=== PATIENT | female | born 1960 ===

== ENCOUNTER 2017-12-12 18:24 | Inpatient (IN) | payer MEDICAID ==
[~2017-12-12] VITALS: Ht 176.5 cm; Wt 99.0 kg
[~2017-12-12 18:24] MED LIST: INSU100V8 SQ; INSULIN
[2017-12-12] MEDS ORDERED: METF500T17 PO (18:59)
[2017-12-12] MEDS ORDERED: AMLO5TAB7 PO (18:59)
[2017-12-12] MEDS ORDERED: INSU100C5 SQ-INSULIN (18:59)
[2017-12-12] MEDS ORDERED: TRAZ-137 PO (18:59)
[2017-12-12] MEDS ORDERED: HYDR25TA6 PO (18:59)
[2017-12-12] MEDS ORDERED: FLUO40CA9 PO (18:59)
[2017-12-12] MEDS ORDERED: SODIUM CHLORIDE FLUSH 10ML SYR IVF ONE (19:00)
[2017-12-12] MEDS ORDERED: DIPH,PERTUSS(ACELL),TET VAC/PF 0.5 ML IM-VACC ONE ×2 (19:00→19:15)
[2017-12-12] MEDS ORDERED: SODIUM CHLORIDE 0.9% 1,000ML IVBOLUS ONE ×3 (19:00→20:00)
[2017-12-12] MEDS ORDERED: VANCOMYCIN PER PHARMACY IV ONE (19:00)
[2017-12-12] MEDS ORDERED: VANCOMYCIN 1,800 MG in SODIUM CHLORIDE 0.9% 250 ML IV ONE (19:00)
[2017-12-12] MEDS ORDERED: AMPICILLIN/SULBACTAM 3 GM in SODIUM CHLORIDE 0.9% 100 ML IVPB ONE (19:00)
[2017-12-12] MEDS ORDERED: MORPHINE SULFATE 4 MG/ML, 1ML ONE ×2 (19:07→21:11)
[2017-12-12] MEDS: MORPHINE SULFATE 4 MG/ML, 1ML IV PRN ×2 (19:08→21:45)
[2017-12-12 19:09] LABS: MEAN CORPUSCULAR HEMOGLOBIN 29.2 pg (27.0-34.8); MEAN CORPUSCULAR HGB CONC 33.8 g/dL (32.4-35.8); MEAN CORPUSCULAR VOLUME 86.5 fL (80-100); MEAN PLATELET VOLUME 9.2 fL (7.4-10.4); PLATELET COUNT 293 x10^3/uL (130-400); RED CELL DISTRIBUTION WIDTH 13.9 % (9.6-15.2)
[2017-12-12 19:20] LABS: ALBUMIN 2.4 g/dL (3.4-5.0); ANION GAP 15 mmol/L (5-15); CHLORIDE 89 mmol/L (98-107); CREATININE 1.58 mg/dL (0.55-1.02)
[2017-12-12] MEDS ORDERED: VANCOMYCIN 1,900 MG in SODIUM CHLORIDE 0.9% 250 ML IV ONE (19:30)
[2017-12-12 19:32] LABS: BASOPHILS # (AUTO) 0.01 x10^3/uL (0-0.1); BASOPHILS % (AUTO) 0 % (0-1); EOSINOPHILS # (AUTO) 0.02 x10^3/uL (0-0.4); EOSINOPHILS % (AUTO) 0 % (1-7); LYMPHOCYTES # (AUTO) 1.01 x10^3/uL (1-3.4); LYMPHOCYTES % (AUTO) 5 % (22-44); MD MORPH REVIEW ONLY; MONOCYTES # (AUTO) 0.73 x10^3/uL (0.2-0.8); MONOCYTES % (AUTO) 4 % (2-9); NEUTROPHILS # (AUTO) 18.17 x10^3/uL (1.8-6.8); NEUTROPHILS % (AUTO) 91 % (42-75)
[2017-12-12 19:33] LABS: <PLATELET ESTIMATE> ADEQUATE; <PLT MORPHOLOGY> NORMAL PLT MORPH; <RBC MORPHOLOGY> NORMAL; TOXIC GRAN 1+
[2017-12-12] MEDS ORDERED: POTASSIUM CHLORIDE 20 MEQ TAB.ER.PRT ONE (19:47)
[2017-12-12 19:51] LABS: HCT (SEDRATE) 38.9 % (34.6-47.8)
[2017-12-12 19:52] LABS: PH, VENOUS 7.311 pH (7.320-7.420)
[2017-12-12] MEDS ORDERED: POTASSIUM CHLORIDE 20 MEQ TAB.ER.PRT PO ONE (20:00)
[2017-12-12 20:07] LABS: HIGH-SENSITIVITY CRP > 19.00 mg/dL (0.02-0.30)
[2017-12-12] MEDS ORDERED: OMNIPAQUE 350 MG/ML, 100ML BOTTLE ONE (20:17)
[2017-12-12 20:20] LABS: ACETONE, SERUM Negative (Negative)
[2017-12-12] MEDS ORDERED: KETAMINE 100 MG/ML, 5ML IV ONE (21:00)
[2017-12-12] MEDS ORDERED: KETAMINE 50 MG/ML, 10ML ONE (21:11)
[2017-12-12] MEDS ORDERED: SODIUM CHLORIDE 0.9% 1,000 ML IV SCH (21:50)
[2017-12-12] MEDS ORDERED: DOCUSATE 100 MG CAPSULE PO PRN (22:00)
[2017-12-12] MEDS ORDERED: PROMETHAZINE 25 MG/ML, 1ML IM PRN (22:00)
[2017-12-12] MEDS ORDERED: morphine SULFATE 10 MG/ML, 1ML IVPush PRN (22:00)
[2017-12-12] MEDS ORDERED: POLYETHYLENE GLYCOL 17 GM PACKET PO PRN (22:00)
[2017-12-12] MEDS ORDERED: BISACODYL 10 MG SUPP PR PRN (22:00)
[2017-12-12] MEDS ORDERED: hydrALAzine 20 MG/ML, 1ML IVPush PRN (22:00)
[2017-12-12] MEDS ORDERED: ONDANSETRON ODT 4 MG PO PRN (22:00)
[2017-12-12] MEDS ORDERED: INSULIN REGULAR 100 UNITS/ML, 3ML VIAL SQ-INSULIN ONE (22:00)
[2017-12-12] MEDS ORDERED: LABETALOL 5MG/ML, 20ML IVPush PRN (22:00)
[2017-12-12] MEDS ORDERED: ONDANSETRON 2MG/ML, 2ML IVPush PRN (22:00)
[2017-12-12] MEDS ORDERED: INSULIN REGULAR 100 UNITS/ML, 3ML VIAL ONE (22:12)
[2017-12-12] MEDS ORDERED: INSULIN ASPART 5 UNIT SQ-INSULIN SCH (22:30)
[2017-12-12] MEDS ORDERED: INSULIN LISPRO 100 UNITS/ML, PEN SQ-INSULIN SCH (22:30)
[2017-12-12] MEDS ORDERED: POTASSIUM CHLORIDE 40 MEQ in SODIUM CHLORIDE 0.9% 500 ML IV ONE (22:30)
[2017-12-12] MEDS ORDERED: VANCOMYCIN PER PHARMACY MC PRN (22:30)
[2017-12-12 22:37] LABS: FREE T4 (FREE THYROXINE) 1.58 ng/dL (0.76-1.46); THYROID STIMULATING HORMONE 1.15 mIU/L (0.358-3.740)
[2017-12-12] MEDS: HEPARIN 5,000 UNITS/ML, 1ML SQ SCH (22:50)
[2017-12-12 22:55] VITALS: BP 112/68
[2017-12-12] MEDS ORDERED: PHARMACOKINETIC CONSULTATION MC ONE (23:00)
[2017-12-12] MEDS ORDERED: PHARMACOKINETIC MONITORING MC PRN (23:00)
[2017-12-12] MEDS: INSULIN GLARGINE 100 UNITS/ML, PEN SQ-INSULIN SCH (23:21)
[2017-12-12] MEDS: INSULIN LISPRO 100 UNITS/ML, PEN SQ-INSULIN SCH (23:21)
[2017-12-12] MEDS: TRAZODONE 50MG TABLET PO SCH (23:30)
[2017-12-12] MEDS: PIPERACILLIN/TAZO/PMX 3.375GM 50 ML IV SCH (23:30)
[2017-12-13 00:19] LABS: CULTURE INDICATED? YES; MICROSCOPIC AUTO
[2017-12-13] MEDS: NS + 40MEQ KCL 1,000 ML IV SCH ×2 (00:45→08:00)
[2017-12-13] MEDS: KETOROLAC 30 MG/1 ML IV PRN ×2 (00:54→09:11)
[2017-12-13 01:53] VITALS: BP 131/71
[2017-12-13 05:00] LABS: MEAN CORPUSCULAR HGB CONC 33.9 g/dL (32.4-35.8); MEAN CORPUSCULAR VOLUME 85.4 fL (80-100); MEAN PLATELET VOLUME 8.6 fL (7.4-10.4); PLATELET COUNT 249 x10^3/uL (130-400); RED BLOOD COUNT 4.22 x10^6/uL (3.82-5.3); RED CELL DISTRIBUTION WIDTH 13.9 % (9.6-15.2)
[2017-12-13 05:12] LABS: ALBUMIN 1.8 g/dL (3.4-5.0); ANION GAP 10 mmol/L (5-15); CALCIUM 7.7 mg/dL (8.5-10.1); CHLORIDE 106 mmol/L (98-107)
[2017-12-13 05:17] LABS: ALANINE AMINOTRANSFERASE 15 U/L (12-78); ALKALINE PHOSPHATASE 184 U/L (45-117); BILIRUBIN,TOTAL 0.5 mg/dL (0.2-1.0); CHOL/HDL RATIO 4.4; CHOLESTEROL, TOTAL 75 mg/dL (140-239); CREATININE 0.89 mg/dL (0.55-1.02); HDL CHOL % 23 % (28-40); HDL CHOLESTEROL (DIRECT) 17 mg/dL (40-60); LDL CHOLESTEROL,CALCULATED 37 mg/dL (54-169); LDL/HDL RATIO 2.2 (0.5-3.0); TOTAL PROTEIN 6.3 g/dL (6.4-8.2); TRIGLYCERIDES 105 mg/dL (50-200); VLDL CHOLESTEROL 21 mg/dL (0-25)
[2017-12-13 05:31] LABS: BASOPHILS # (AUTO) 0.02 x10^3/uL (0-0.1); BASOPHILS % (AUTO) 0 % (0-1); EOSINOPHILS # (AUTO) 0.06 x10^3/uL (0-0.4); EOSINOPHILS % (AUTO) 0 % (1-7); LYMPHOCYTES # (AUTO) 1.17 x10^3/uL (1-3.4); LYMPHOCYTES % (AUTO) 6 % (22-44); MD SCAN; MONOCYTES # (AUTO) 1.37 x10^3/uL (0.2-0.8); MONOCYTES % (AUTO) 7 % (2-9); NEUTROPHILS # (AUTO) 17.17 x10^3/uL (1.8-6.8); NEUTROPHILS % (AUTO) 87 % (42-75)
[2017-12-13] MEDS: HEPARIN 5,000 UNITS/ML, 1ML SQ SCH ×3 (06:16→22:19)
[2017-12-13] MEDS: PIPERACILLIN/TAZO/PMX 3.375GM 50 ML IV SCH ×3 (06:16→19:39)
[2017-12-13] MEDS: INSULIN LISPRO 100 UNITS/ML, PEN SQ-INSULIN SCH ×4 (06:20→22:24)
[2017-12-13 07:12] VITALS: BP 113/64
[2017-12-13] MEDS: FLUOXETINE HCL 20 MG CAPSULE PO SCH (09:11)
[2017-12-13] MEDS ORDERED: GADOBUTROL 10 MMOL/10 ML PFS ONE (12:44)
[2017-12-13 14:41] VITALS: BP 148/77
[2017-12-13 15:08] VITALS: BP 113/68
[2017-12-13] MEDS: VANCOMYCIN 1,600 MG in SODIUM CHLORIDE 0.9% 250 ML IV SCH (17:34)
[2017-12-13] MEDS: ACETAMINOPHEN 325 MG TABLET PO PRN (18:16)
[2017-12-13] MEDS ORDERED: SODIUM CHLORIDE 0.9% 1,000 ML IV SCH (18:30)
[2017-12-13] MEDS: SODIUM CHLORIDE 0.9% 1,000 ML IV SCH (18:30)
[2017-12-13 18:37] VITALS: BP 111/65
[2017-12-13] MEDS: TRAZODONE 50MG TABLET PO SCH (22:19)
[2017-12-13] MEDS: INSULIN GLARGINE 100 UNITS/ML, PEN SQ-INSULIN SCH (22:23)
[2017-12-14 00:16] VITALS: BP 136/75
[2017-12-14] MEDS: ACETAMINOPHEN 325 MG TABLET PO PRN (00:54)
[2017-12-14] MEDS: PIPERACILLIN/TAZO/PMX 3.375GM 50 ML IV SCH ×4 (01:03→21:47)
[2017-12-14 05:06] LABS: BASOPHILS # (AUTO) 0.01 x10^3/uL (0-0.1); BASOPHILS % (AUTO) 0 % (0-1); EOSINOPHILS # (AUTO) 0.17 x10^3/uL (0-0.4); EOSINOPHILS % (AUTO) 1 % (1-7); LYMPHOCYTES # (AUTO) 1.49 x10^3/uL (1-3.4); LYMPHOCYTES % (AUTO) 10 % (22-44); MD NO; MEAN CORPUSCULAR HEMOGLOBIN 28.4 pg (27.0-34.8); MEAN CORPUSCULAR HGB CONC 32.9 g/dL (32.4-35.8); MEAN CORPUSCULAR VOLUME 86.5 fL (80-100); MEAN PLATELET VOLUME 8.6 fL (7.4-10.4); MONOCYTES # (AUTO) 0.62 x10^3/uL (0.2-0.8); MONOCYTES % (AUTO) 4 % (2-9); NEUTROPHILS # (AUTO) 12.69 x10^3/uL (1.8-6.8); NEUTROPHILS % (AUTO) 85 % (42-75); PLATELET COUNT 299 x10^3/uL (130-400); RED CELL DISTRIBUTION WIDTH 14.1 % (9.6-15.2)
[2017-12-14 05:09] LABS: ANION GAP 9 mmol/L (5-15); CALCIUM 8.5 mg/dL (8.5-10.1); CHLORIDE 104 mmol/L (98-107); CREATININE 0.89 mg/dL (0.55-1.02)
[2017-12-14] MEDS: HEPARIN 5,000 UNITS/ML, 1ML SQ SCH ×3 (05:10→23:02)
[2017-12-14] MEDS: KETOROLAC 30 MG/1 ML IV PRN ×2 (05:11→14:16)
[2017-12-14] MEDS: SODIUM CHLORIDE 0.9% 1,000 ML IV SCH ×2 (06:20→21:47)
[2017-12-14 07:22] VITALS: BP 124/69
[2017-12-14] MEDS: FLUOXETINE HCL 20 MG CAPSULE PO SCH (07:55)
[2017-12-14] MEDS: INSULIN LISPRO 100 UNITS/ML, PEN SQ-INSULIN SCH ×3 (09:49→21:48)
[2017-12-14] MEDS: OXYcodone IR 5MG TABLET PO PRN ×2 (11:03→23:03)
[2017-12-14] MEDS: VANCOMYCIN 1,600 MG in SODIUM CHLORIDE 0.9% 250 ML IV SCH (11:04)
[2017-12-14] MEDS ORDERED: morphine SULFATE 10 MG/ML, 1ML IVPush PRN (13:00)
[2017-12-14 13:43] VITALS: BP 126/64
[2017-12-14] MEDS ORDERED: FENTANYL PF 100 MCG/2ML IV PRN (16:30)
[2017-12-14] MEDS ORDERED: OXYcodone 5 MG/5 ML ORAL.SOL UDC PO PRN (16:30)
[2017-12-14] MEDS ORDERED: LABETALOL 5MG/ML, 20ML IV PRN (16:30)
[2017-12-14] MEDS ORDERED: DIPHENHYDRAMINE 50 MG/ML, 1ML IVPush PRN (16:30)
[2017-12-14] MEDS ORDERED: PROCHLORPERAZINE 5 MG/ML, 2ML IV PRN (16:30)
[2017-12-14] MEDS ORDERED: HYDROmorphone 1 MG/ML, 1ML IV PRN (16:30)
[2017-12-14] MEDS ORDERED: HALOPERIDOL 5 MG/ML IV PRN (16:30)
[2017-12-14] MEDS ORDERED: hydrALAzine 20 MG/ML, 1ML IV PRN (16:30)
[2017-12-14] MEDS ORDERED: MEPERIDINE/PF 25MG/0.5ML IVPush PRN (16:30)
[2017-12-14] MEDS ORDERED: PROPOFOL 10 MG/ML, 20ML ONE (18:16)
[2017-12-14] MEDS ORDERED: ONDANSETRON 2MG/ML, 2ML ONE (18:16)
[2017-12-14] MEDS ORDERED: KETOROLAC 30 MG/1 ML ONE (18:16)
[2017-12-14] MEDS ORDERED: DEXAMETHASONE 4 MG/ML, 1ML ONE (18:16)
[2017-12-14] MEDS ORDERED: FENTANYL PF 100 MCG/2ML ONE ×3 (18:39→19:31)
[2017-12-14] MEDS ORDERED: BUPIVACAINE/PF-EPI 0.5% 1:200K INFIL ONE (18:45)
[2017-12-14] MEDS ORDERED: OXYcodone 5 MG/5 ML ORAL.SOL UDC ONE (19:31)
[2017-12-14 20:17] VITALS: BP 156/79
[2017-12-14] MEDS: TRAZODONE 50MG TABLET PO SCH (21:47)
[2017-12-14] MEDS: INSULIN GLARGINE 100 UNITS/ML, PEN SQ-INSULIN SCH (21:48)
[2017-12-14 23:23] VITALS: BP 116/74
[2017-12-15] MEDS: KETOROLAC 30 MG/1 ML IV PRN ×3 (03:12→16:19)
[2017-12-15] MEDS: PIPERACILLIN/TAZO/PMX 3.375GM 50 ML IV SCH ×4 (03:12→22:54)
[2017-12-15 03:22] VITALS: BP 130/72
[2017-12-15] MEDS: VANCOMYCIN 1,600 MG in SODIUM CHLORIDE 0.9% 250 ML IV SCH (05:18)
[2017-12-15 05:27] LABS: BASOPHILS # (AUTO) 0.03 x10^3/uL (0-0.1); BASOPHILS % (AUTO) 0 % (0-1); EOSINOPHILS # (AUTO) 0.13 x10^3/uL (0-0.4); EOSINOPHILS % (AUTO) 1 % (1-7); LYMPHOCYTES # (AUTO) 1.31 x10^3/uL (1-3.4); LYMPHOCYTES % (AUTO) 12 % (22-44); MD NO; MEAN CORPUSCULAR HEMOGLOBIN 28.7 pg (27.0-34.8); MEAN PLATELET VOLUME 8.1 fL (7.4-10.4); MONOCYTES # (AUTO) 0.72 x10^3/uL (0.2-0.8); MONOCYTES % (AUTO) 6 % (2-9); NEUTROPHILS # (AUTO) 9.15 x10^3/uL (1.8-6.8); NEUTROPHILS % (AUTO) 81 % (42-75); PLATELET COUNT 247 x10^3/uL (130-400); RED BLOOD COUNT 3.55 x10^6/uL (3.82-5.3); RED CELL DISTRIBUTION WIDTH 14.3 % (9.6-15.2)
[2017-12-15 05:37] LABS: ANION GAP 9 mmol/L (5-15); CALCIUM 7.5 mg/dL (8.5-10.1); CHLORIDE 105 mmol/L (98-107); CREATININE 0.78 mg/dL (0.55-1.02)
[2017-12-15 05:38] LABS: VANCOMYCIN,TROUGH 11.6 mcg/mL (5.0-10.0)
[2017-12-15] MEDS: HEPARIN 5,000 UNITS/ML, 1ML SQ SCH ×3 (06:37→22:54)
[2017-12-15] MEDS: OXYcodone IR 5MG TABLET PO PRN ×3 (06:43→19:15)
[2017-12-15] MEDS ORDERED: INSULIN LISPRO 100 UNITS/ML, PEN SQ-INSULIN SCH (07:00)
[2017-12-15 07:38] VITALS: BP 146/70
[2017-12-15] MEDS: SODIUM CHLORIDE 0.9% 1,000 ML IV SCH ×2 (08:04→19:15)
[2017-12-15] MEDS: FLUOXETINE HCL 20 MG CAPSULE PO SCH (08:04)
[2017-12-15] MEDS ORDERED: POTASSIUM CHLORIDE 40 MEQ in SODIUM CHLORIDE 0.9% 500 ML IV ONE (09:30)
[2017-12-15] MEDS ORDERED: MAGNESIUM SULFATE PMX 2GM/50ML 50 ML IV ONE (09:30)
[2017-12-15] MEDS: INSULIN LISPRO 100 UNITS/ML, PEN SQ-INSULIN SCH ×3 (11:51→20:55)
[2017-12-15 12:27] VITALS: BP 144/72
[2017-12-15] MEDS: ACETAMINOPHEN 325 MG TABLET PO PRN (16:19)
[2017-12-15 18:38] VITALS: BP 142/85
[2017-12-15] MEDS: INSULIN GLARGINE 100 UNITS/ML, PEN SQ-INSULIN SCH (20:55)
[2017-12-15] MEDS: TRAZODONE 50MG TABLET PO SCH (20:55)
[2017-12-15] MEDS: VANCOMYCIN 1,900 MG in SODIUM CHLORIDE 0.9% 250 ML IV SCH (20:55)
[2017-12-15 23:27] VITALS: BP 140/72
[2017-12-16] MEDS: OXYcodone IR 5MG TABLET PO PRN ×4 (03:38→23:50)
[2017-12-16] MEDS: SODIUM CHLORIDE 0.9% 1,000 ML IV SCH ×2 (03:40→17:37)
[2017-12-16] MEDS: PIPERACILLIN/TAZO/PMX 3.375GM 50 ML IV SCH ×4 (04:13→23:50)
[2017-12-16] MEDS: HEPARIN 5,000 UNITS/ML, 1ML SQ SCH ×3 (06:18→21:41)
[2017-12-16 06:49] VITALS: BP 154/75
[2017-12-16] MEDS: FLUOXETINE HCL 20 MG CAPSULE PO SCH (07:43)
[2017-12-16] MEDS: INSULIN LISPRO 100 UNITS/ML, PEN SQ-INSULIN SCH ×4 (07:43→21:40)
[2017-12-16] MEDS: KETOROLAC 30 MG/1 ML IV PRN ×4 (07:44→21:40)
[2017-12-16] MEDS: ACETAMINOPHEN 325 MG TABLET PO PRN ×2 (11:07→15:40)
[2017-12-16] MEDS: OMEPRAZOLE 20 MG CAPSULE.DR PO SCH (11:07)
[2017-12-16 12:00] VITALS: BP 140/78
[2017-12-16] MEDS: VANCOMYCIN 1,900 MG in SODIUM CHLORIDE 0.9% 250 ML IV SCH (15:35)
[2017-12-16 21:28] VITALS: BP 128/72
[2017-12-16] MEDS: TRAZODONE 50MG TABLET PO SCH (21:39)
[2017-12-16] MEDS: INSULIN GLARGINE 100 UNITS/ML, PEN SQ-INSULIN SCH (21:40)
[2017-12-17 01:11] LABS: CLOSTRIDIUM DIFFICILE ANTIGEN NEGATIVE; CLOSTRIDIUM DIFFICILE TOXIN NEGATIVE (Negative)
[2017-12-17 03:40] VITALS: BP 132/75
[2017-12-17] MEDS: PIPERACILLIN/TAZO/PMX 3.375GM 50 ML IV SCH ×4 (05:06→23:52)
[2017-12-17] MEDS: KETOROLAC 30 MG/1 ML IV PRN ×3 (05:07→21:29)
[2017-12-17] MEDS: HEPARIN 5,000 UNITS/ML, 1ML SQ SCH ×3 (06:18→22:00)
[2017-12-17] MEDS: ACETAMINOPHEN 325 MG TABLET PO PRN ×2 (07:56→14:22)
[2017-12-17] MEDS: INSULIN LISPRO 100 UNITS/ML, PEN SQ-INSULIN SCH ×4 (07:56→21:28)
[2017-12-17] MEDS: OXYcodone IR 5MG TABLET PO PRN ×3 (07:57→23:52)
[2017-12-17] MEDS: OMEPRAZOLE 20 MG CAPSULE.DR PO SCH (07:57)
[2017-12-17] MEDS: FLUOXETINE HCL 20 MG CAPSULE PO SCH (07:57)
[2017-12-17 08:54] VITALS: BP 118/69
[2017-12-17] MEDS: VANCOMYCIN 1,900 MG in SODIUM CHLORIDE 0.9% 250 ML IV SCH (09:42)
[2017-12-17] MEDS: SODIUM CHLORIDE 0.9% 1,000 ML IV SCH ×2 (11:50→23:52)
[2017-12-17 13:05] VITALS: BP 145/78
[2017-12-17 18:42] VITALS: BP 152/74
[2017-12-17] MEDS: INSULIN GLARGINE 100 UNITS/ML, PEN SQ-INSULIN SCH (21:28)
[2017-12-17] MEDS: TRAZODONE 50MG TABLET PO SCH (21:29)
[2017-12-18 02:18] VITALS: BP 152/77
[2017-12-18] MEDS: ACETAMINOPHEN 325 MG TABLET PO PRN ×2 (02:27→11:46)
[2017-12-18] MEDS: VANCOMYCIN 1,900 MG in SODIUM CHLORIDE 0.9% 250 ML IV SCH (03:30)
[2017-12-18 03:33] LABS: VANCOMYCIN,TROUGH 20.6 mcg/mL (5.0-10.0)
[2017-12-18] MEDS: HEPARIN 5,000 UNITS/ML, 1ML SQ SCH (06:00)
[2017-12-18] MEDS: PIPERACILLIN/TAZO/PMX 3.375GM 50 ML IV SCH ×2 (06:00→14:13)
[2017-12-18] MEDS: OXYcodone IR 5MG TABLET PO PRN ×2 (06:05→11:57)
[2017-12-18 06:58] VITALS: BP 161/74
[2017-12-18] MEDS: INSULIN LISPRO 100 UNITS/ML, PEN SQ-INSULIN SCH ×2 (08:25→11:45)
[2017-12-18] MEDS: OMEPRAZOLE 20 MG CAPSULE.DR PO SCH (08:32)
[2017-12-18] MEDS: FLUOXETINE HCL 20 MG CAPSULE PO SCH (08:32)
[2017-12-18] MEDS ORDERED: VANCOMYCIN 1,900 MG in SODIUM CHLORIDE 0.9% 250 ML IV SCH (12:00)
[2017-12-18 12:25] VITALS: BP 157/78
[2017-12-18] MEDS ORDERED: OXYC5TAB3 PO (13:38)
[2017-12-18] MEDS ORDERED: CEPH-368 PO (13:38)
== END 2017-12-18 15:51 | disposition home or self-care (01) | DRG 853 ==
LOC: ED 18:59 → EDIP 21:47 → 4NOR 22:30 → DCLOUNGE 12-18 13:34
PROVIDERS: ADMIT Internal Medicine; ATTEND Internal Medicine
PROC: 0L970ZZ Drainage of Right Hand Tendon, Open Approach (ICD-10-PCS; 2017-12-14)
PROC: 0LB70ZZ Excision of Right Hand Tendon, Open Approach (ICD-10-PCS; principal; 2017-12-14 17:30)
DX: A41.9 Sepsis, unspecified organism (principal); N17.0 Acute kidney failure with tubular necrosis; E11.10 Type 2 diabetes mellitus with ketoacidosis without coma; L02.511 Cutaneous abscess of right hand; E44.0 Moderate protein-calorie malnutrition; E87.1 Hypo-osmolality and hyponatremia; L03.113 Cellulitis of right upper limb; E86.0 Dehydration; E87.6 Hypokalemia; F15.10 Other stimulant abuse, uncomplicated; F32.9 Major depressive disorder, single episode, unspecified; F41.9 Anxiety disorder, unspecified; I10 Essential (primary) hypertension; R65.20 Severe sepsis without septic shock; Z79.4 Long term (current) use of insulin; Z68.31 Body mass index [BMI] 31.0-31.9, adult; Z79.899 Other long term (current) drug therapy; Z79.1 Long term (current) use of non-steroidal anti-inflammatories (NSAID); Z79.2 Long term (current) use of antibiotics
CPT/HCPCS: 36415; 80048; 80053; 80061; 80202; 81001; 82010; 82040; 82565; 82803; 82947; 82962; 83036; 83605; 83735; 84145; 84439; 84443; 85025; 85651; 86141; 87040; 87070; 87075; 87077; 87086; 87186; 87205; 87324; 90471; 90715; 96365; 96372; 96375; 96376; 99291; A9585; G0378; J0295; J1100; J1644; J1885; J2405; J2543; J2704; J3010; J3370; J3480; Q9967; J1815; J2270; J3475; J7030; J7040; J7050

== ENCOUNTER 2017-12-22 08:17 | Emergency (ER) | payer MEDICAID ==
[~2017-12-22] VITALS: Ht 175.3 cm; Wt 95.0 kg
[~2017-12-22 08:17] MED LIST changes: +AMLO5TAB7 PO; +CEPH-368 PO; +FLUO40CA9 PO; +HYDR25TA6 PO; +INSU100C5 SQ-INSULIN; +METF500T17 PO; +OXYC5TAB3 PO; +TRAZ-137 PO
[2017-12-22 08:59] VITALS: BP 151/83
== END 2017-12-22 09:11 | disposition home or self-care (01) ==
LOC: ED 09:05
DX: L03.113 Cellulitis of right upper limb (principal); F31.9 Bipolar disorder, unspecified; I10 Essential (primary) hypertension; E11.9 Type 2 diabetes mellitus without complications
CPT/HCPCS: 99283

== ENCOUNTER 2017-12-24 08:45 | Emergency (ER) | payer MEDICAID ==
[~2017-12-24] VITALS: Ht 175.3 cm; Wt 94.0 kg
[2017-12-24 08:55] VITALS: BP 165/82
== END 2017-12-24 10:11 | disposition home or self-care (01) ==
LOC: ED 09:00
DX: L02.511 Cutaneous abscess of right hand (principal); F31.9 Bipolar disorder, unspecified; I10 Essential (primary) hypertension; F41.1 Generalized anxiety disorder; E11.9 Type 2 diabetes mellitus without complications
CPT/HCPCS: 99282

== ENCOUNTER 2018-02-08 14:27 | Emergency (ER) | payer MEDICAID ==
[~2018-02-08] VITALS: Ht 175.3 cm; Wt 88.0 kg
[~2018-02-08 14:27] MED LIST changes: +AMLO-150 PO; +AMLO10TA6 PO; -AMLO5TAB7 PO; +Blood Pressure Med PO; +HYDR-3245 PO; +INSU100I13 SQ-INSULIN; +OMEP-110 PO; +TRAZ50TA66 PO
[2018-02-08 15:04] LABS: BASOPHILS # (AUTO) 0.01 x10^3/uL (0-0.1); BASOPHILS % (AUTO) 0 % (0-1); EOSINOPHILS # (AUTO) 0.08 x10^3/uL (0-0.4); EOSINOPHILS % (AUTO) 1 % (1-7); LYMPHOCYTES # (AUTO) 1.54 x10^3/uL (1-3.4); LYMPHOCYTES % (AUTO) 20 % (22-44); MD NO; MEAN CORPUSCULAR HEMOGLOBIN 28.1 pg (27.0-34.8); MEAN CORPUSCULAR HGB CONC 33.5 g/dL (32.4-35.8); MEAN PLATELET VOLUME 8.2 fL (7.4-10.4); MONOCYTES # (AUTO) 0.58 x10^3/uL (0.2-0.8); MONOCYTES % (AUTO) 8 % (2-9); NEUTROPHILS # (AUTO) 5.32 x10^3/uL (1.8-6.8); NEUTROPHILS % (AUTO) 71 % (42-75); PLATELET COUNT 273 x10^3/uL (130-400); RED BLOOD COUNT 3.97 x10^6/uL (3.82-5.3); RED CELL DISTRIBUTION WIDTH 15.2 % (9.6-15.2)
[2018-02-08 15:06] LABS: ALBUMIN 2.9 g/dL (3.4-5.0); ANION GAP 9 mmol/L (5-15); CALCIUM 8.4 mg/dL (8.5-10.1); CHLORIDE 102 mmol/L (98-107); CREATININE 1.08 mg/dL (0.55-1.02)
[2018-02-08 16:13] VITALS: BP 128/74
== END 2018-02-08 17:37 | disposition home or self-care (01) ==
LOC: ED 16:02
DX: R20.2 Paresthesia of skin (principal); E11.65 Type 2 diabetes mellitus with hyperglycemia; F17.200 Nicotine dependence, unspecified, uncomplicated; I10 Essential (primary) hypertension
CPT/HCPCS: 36415; 70450; 80048; 82040; 85025; 93005; 99284

== ENCOUNTER 2018-02-09 12:56 | Day surgery (SDC) | payer MEDICAID ==
[~2018-02-09] VITALS: Ht 175.3 cm; Wt 93.9 kg
[2018-02-09] MEDS ORDERED: LACTATED RINGERS 1,000 ML IV SCH ×2 (13:18→20:30)
[2018-02-09 13:34] VITALS: BP 155/91
[2018-02-09 14:08] LABS: AMPHETAMINE SCREEN, URINE Negative (Negative); BARBITURATE SCREEN, URINE Negative (Negative); BENZODIAZEPINE SCREEN, URINE Negative (Negative); CANNABINOID SCREEN, URINE Positive (Negative); COCAINE SCREEN, URINE Negative (Negative); METHADONE SCREEN, URINE Negative (Negative); OPIATE SCREEN, URINE Positive (Negative)
[2018-02-09] MEDS ORDERED: FENTANYL PF 250 MCG/5ML ONE ×2 (14:39→16:10)
[2018-02-09] MEDS ORDERED: MIDAZOLAM 1 MG/ML, 2ML ONE (14:39)
[2018-02-09] MEDS ORDERED: PROPOFOL 10 MG/ML, 20ML ONE (14:40)
[2018-02-09] MEDS ORDERED: ONDANSETRON 2MG/ML, 2ML ONE (14:41)
[2018-02-09] MEDS ORDERED: CEFAZOLIN 1,000 MG ONE ×2 (14:41)
[2018-02-09] MEDS ORDERED: DEXAMETHASONE 4 MG/ML, 1ML ONE ×2 (14:41)
[2018-02-09] MEDS ORDERED: SODIUM CHLORIDE 0.9% PF 10ML ONE (14:41)
[2018-02-09] MEDS ORDERED: PROMETHAZINE 25 MG SUPP PR PRN (15:00)
[2018-02-09] MEDS ORDERED: PROMETHAZINE 25 MG/ML, 1ML IM PRN ×3 (15:00→20:30)
[2018-02-09] MEDS ORDERED: ONDANSETRON 2MG/ML, 2ML IV PRN ×2 (15:00→20:30)
[2018-02-09] MEDS ORDERED: hydrALAzine 20 MG/ML, 1ML IV PRN (15:00)
[2018-02-09] MEDS ORDERED: ACETAMINOPHEN 325 MG TABLET PO PRN (15:00)
[2018-02-09] MEDS ORDERED: HYDROmorphone 2 MG/ML, 1ML IVPush PRN (15:00)
[2018-02-09] MEDS ORDERED: OXYcodone 5 MG/5 ML ORAL.SOL UDC PO PRN (15:00)
[2018-02-09] MEDS ORDERED: PROMETHAZINE 12.5 MG SUPP PR PRN (15:00)
[2018-02-09] MEDS ORDERED: MEPERIDINE/PF 25MG/0.5ML IVPush PRN (15:00)
[2018-02-09] MEDS ORDERED: ONDANSETRON ODT 8 MG PO PRN (15:00)
[2018-02-09] MEDS ORDERED: LABETALOL 5MG/ML, 20ML IV PRN (15:00)
[2018-02-09] MEDS ORDERED: PROMETHAZINE 25 MG/ML, 1ML IV PRN (15:00)
[2018-02-09] MEDS ORDERED: MORPHINE SULFATE 4 MG/ML, 1ML IVPush PRN (15:00)
[2018-02-09] MEDS ORDERED: ROCURONIUM 10MG/ML,5ML ONE (15:09)
[2018-02-09] MEDS ORDERED: GLYCOPYRROLATE 0.2MG/1ML, 5ML ONE (15:33)
[2018-02-09] MEDS ORDERED: NEOSTIGMINE 1 MG/ML, 10ML ONE (15:33)
[2018-02-09] MEDS ORDERED: BUPIVACAINE/PF 0.5% ONE (16:03)
[2018-02-09] MEDS ORDERED: LABETALOL 20 MG/4 ML ONE ×2 (16:37→17:19)
[2018-02-09] MEDS ORDERED: FENTANYL PF 100 MCG/2ML ONE ×3 (16:59→18:21)
[2018-02-09] MEDS ORDERED: OXYcodone 5 MG/5 ML ORAL.SOL UDC ONE (18:21)
[2018-02-09] MEDS: FENTANYL PF 100 MCG/2ML IV PRN ×2 (18:22→18:41)
[2018-02-09] MEDS ORDERED: HYDROmorphone 2 MG/ML, 1ML ONE (18:50)
[2018-02-09] MEDS ORDERED: ACETAMINOPHEN 650 MG/20.3 ML UDC ONE (18:50)
[2018-02-09] MEDS ORDERED: hydrALAzine 20 MG/ML, 1ML ONE (19:13)
[2018-02-09] MEDS ORDERED: HYDROcodone/APAP 5/325 TABLET PO PRN (20:30)
[2018-02-09] MEDS ORDERED: morphine SULFATE 10 MG/ML, 1ML IV PRN (20:30)
[2018-02-09] MEDS ORDERED: MORPHINE SULFATE 4 MG/ML, 1ML ONE (20:39)
== END 2018-02-09 21:10 | disposition home or self-care (01) ==
LOC: OUT 12:56 → 4NOR 19:50 → OUT 21:10
PROVIDERS: ATTEND Orthopaedic Surgery
DX: S42.411A Displaced simple supracondylar fracture without intercondylar fracture of right humerus, initial encounter for closed fracture (principal); E11.9 Type 2 diabetes mellitus without complications; I10 Essential (primary) hypertension; W18.39XA Other fall on same level, initial encounter; Y93.89 Activity, other specified; Y92.89 Other specified places as the place of occurrence of the external cause; Y99.8 Other external cause status; Z72.89 Other problems related to lifestyle; Z79.899 Other long term (current) drug therapy
CPT/HCPCS: 24545; 73070; 76001; 80307; 82962; C1713; C1762; J0360; J0690; J1170; J2250; J2270; J2405; J2704; J2710; J3010; J3490; J7120; G0378; J1100

== ENCOUNTER 2018-05-19 09:07 | Emergency (ER) | payer MEDICAID ==
[~2018-05-19] VITALS: Ht 175.3 cm; Wt 95.0 kg
[~2018-05-19 09:07] MED LIST changes: -AMLO10TA6 PO; +AMLO10TA8 PO
[2018-05-19] MEDS ORDERED: KETOROLAC 30 MG/1 ML ONE (09:56)
[2018-05-19] MEDS ORDERED: KETOROLAC 30 MG/1 ML IM ONE (10:00)
--- NOTE | 2018-05-19 10:40 | NUR ---
Patient/Caregiver given discharge instructions and they have confirmed that they understand the instructions. Patient ambulatory with steady gait.
[2018-05-19 10:47] VITALS: BP 112/78
== END 2018-05-19 10:49 | disposition home or self-care (01) ==
LOC: ED 10:40
DX: S40.012A Contusion of left shoulder, initial encounter (principal); E10.65 Type 1 diabetes mellitus with hyperglycemia; Z76.0 Encounter for issue of repeat prescription; F17.200 Nicotine dependence, unspecified, uncomplicated; I10 Essential (primary) hypertension; F31.9 Bipolar disorder, unspecified; W19.XXXA Unspecified fall, initial encounter; Y93.89 Activity, other specified; Y99.8 Other external cause status; Y92.009 Unspecified place in unspecified non-institutional (private) residence as the place of occurrence of the external cause
CPT/HCPCS: 73030; 96372; 99283; J1885; 82962

== ENCOUNTER 2018-09-19 07:32 | Emergency (ER) | payer MEDICAID ==
[~2018-09-19] VITALS: Ht 177.8 cm; Wt 95.2 kg
[2018-09-19 07:38] VITALS: BP 179/99
== END 2018-09-19 09:19 | disposition home or self-care (01) ==
LOC: ED 08:44
DX: S42.401A Unspecified fracture of lower end of right humerus, initial encounter for closed fracture (principal); M79.621 Pain in right upper arm; F17.210 Nicotine dependence, cigarettes, uncomplicated; I10 Essential (primary) hypertension; E11.9 Type 2 diabetes mellitus without complications; W18.30XA Fall on same level, unspecified, initial encounter; Y93.89 Activity, other specified; Y92.009 Unspecified place in unspecified non-institutional (private) residence as the place of occurrence of the external cause; Y99.8 Other external cause status
CPT/HCPCS: 99284

== ENCOUNTER 2020-01-02 11:23 | Inpatient (IN) | payer MEDICAID ==
[~2020-01-02] VITALS: Ht 177.8 cm; Wt 98.6 kg
[~2020-01-02 11:23] MED LIST changes: +AMLO-211 PO; -AMLO10TA8 PO; -TRAZ-137 PO; +TRAZ-175 PO
--- NOTE | 2020-01-02 12:09 | NUR ---
PT BIB EMS FOR GLF. PT WAS GROUND FOR 4 DAYS. PT STATES SHE TRIPPED AND FELL AND WAS ON THE GROUND. SHE STATED SHE JUST DIDNT FEEL STRONG ENOUGH TO GET UP AFTER THAT AND COULD NOT GET TO HER PHONE. SHE HAD WATER, BUT WAS UNABLE TO EAT. PT DENIES LOC OR DIZZINESS. PT HAS HX OF DM2 AND BS HAS BEEN "READING HIGH". PT IS CONNECTED TO MONITORING EQUIPMENT. AWAITING .
[2020-01-02] MEDS ORDERED: SODIUM CHLORIDE 0.9% 1,000ML IVBOLUS ONE ×2 (12:30→14:00)
--- NOTE | 2020-01-02 12:39 | NUR ---
REPORT GIVEN TO ALEIDA GILLETTE.
[2020-01-02 13:05] LABS: PH, VENOUS 7.301 pH (7.320-7.420)
[2020-01-02 13:07] LABS: BASOPHILS % (AUTO) 0 % (0-1); EOSINOPHILS % (AUTO) 0 % (1-7); LYMPHOCYTES % (AUTO) 7 % (22-44); MEAN CORPUSCULAR HEMOGLOBIN 28.9 pg (27.0-34.8); MONOCYTES % (AUTO) 5 % (2-9); NEUTROPHILS % (AUTO) 88 % (42-75); PLATELET COUNT 349 x10^3/uL (130-400); RED BLOOD COUNT 5.47 x10^6/uL (3.82-5.3); RED CELL DISTRIBUTION WIDTH 12.9 % (9.6-15.2)
[2020-01-02 13:09] LABS: FIO2 ROOM AIR %
[2020-01-02 13:13] LABS: MD NO
[2020-01-02 13:19] LABS: ALANINE AMINOTRANSFERASE 26 U/L (12-78); ALBUMIN 2.5 g/dL (3.4-5.0); ANION GAP 9 mmol/L (5-15); CALCIUM 8.6 mg/dL (8.5-10.1); CHLORIDE 98 mmol/L (98-107); CREATININE 2.31 mg/dL (0.55-1.02)
[2020-01-02 13:22] LABS: ALKALINE PHOSPHATASE 117 U/L (45-117); BILIRUBIN,TOTAL 0.6 mg/dL (0.2-1.0); CREATINE KINASE, TOTAL 93 U/L (26-192); TOTAL PROTEIN 7.8 g/dL (6.4-8.2)
[2020-01-02] MEDS ORDERED: AZITHROMYCIN 500 MG in SODIUM CHLORIDE 0.9% 250 ML IV ONE (13:30)
[2020-01-02] MEDS ORDERED: CEFTRIAXONE PMX 1GM/50ML 50 ML IV ONE (13:30)
[2020-01-02 13:51] LABS: ACETONE, SERUM Negative (Negative)
[2020-01-02] MEDS ORDERED: INSULIN REGULAR 100 UNITS/ML, 3ML VIAL IV ONE (14:00)
--- NOTE | 2020-01-02 14:00 | NUR ---
STRAIGHT CATHERIZED-SAMPLE CLOUDY-WALKED TO LAB THEN AFTER CLARIFICATION THAT BLOOD CULTURES WERE DRAWN-MEDICATED PER EMAR
--- NOTE | 2020-01-02 14:11 | NUR ---
PRE [facility] RECEIVED 250ML OF NS, IN HOSPITAL 1000ML OF NS (COMPLETED AT 1400) REPEAT FSBS "HIGH"
[2020-01-02] MEDS ORDERED: CEFTRIAXONE PMX 1GM/50ML 50 ML ONE (14:30)
[2020-01-02] MEDS ORDERED: INSULIN SINGLE DOSE, ER ONE (14:49)
[2020-01-02 14:58] LABS: MICROSCOPIC INDICATED
[2020-01-02] MEDS ORDERED: FLUO40CA9 PO (15:11)
--- NOTE | 2020-01-02 15:11 | NUR ---
With med recc- patient has been taking 20 units of glargine in the am (last dose was 3-4 days ago)-not at night and she has not been doing meal time insulin Also she has not been taking her hctz
--- NOTE | 2020-01-02 15:28 | NUR ---
Provided with high fiber/low glycemic tray
--- NOTE | 2020-01-02 15:29 | NUR ---
attempted to call report- rn unavailable. She will call back shortly
--- NOTE | 2020-01-02 15:32 | NUR ---
Spoke to Dr. Cam in regard for need for covid swab (patient exibiting sxs) and order for cough medicine Dr. Cam reports she was about to sign order for both just now [employer] Rn made aware
--- NOTE | 2020-01-02 15:58 | NUR ---
post 2liter of ivf fsbs 476
[2020-01-02] MEDS: AZITHROMYCIN 500 MG in SODIUM CHLORIDE 0.9% 250 ML IV SCH (16:00)
[2020-01-02] MEDS ORDERED: BENZONATATE 100 MG CAPSULE PO PRN (16:00)
[2020-01-02] MEDS: CEFTRIAXONE PMX 1GM/50ML 50 ML IV SCH (16:00)
[2020-01-02] MEDS: INSULIN LISPRO 100 UNITS/ML, PEN SQ-INSULIN SCH ×3 (16:00→22:01)
[2020-01-02] MEDS ORDERED: LABETALOL 5MG/ML, 20ML IVPush PRN (16:00)
[2020-01-02] MEDS ORDERED: MORPHINE SULFATE 4 MG/ML, 1ML IVPush PRN (16:00)
[2020-01-02] MEDS ORDERED: DEXTROSE 50%, 50ML SYRINGE IVPush PRN (16:00)
[2020-01-02] MEDS ORDERED: GLUCAGON 1 MG IM PRN (16:00)
[2020-01-02] MEDS ORDERED: DEXTROSE 4 GM TAB.CHEW PO PRN (16:00)
[2020-01-02] MEDS ORDERED: ONDANSETRON 2MG/ML, 2ML ONE (16:19)
[2020-01-02] MEDS ORDERED: METRONIDAZOLE PMX 500MG/100ML 100 ML ONE (16:20)
[2020-01-02] MEDS ORDERED: BENZONATATE 100 MG CAPSULE ONE (16:20)
[2020-01-02] MEDS ORDERED: NS + 20MEQ KCL 1,000 ML IV ONE (16:30)
[2020-01-02] MEDS: ONDANSETRON 2MG/ML, 2ML IVPush PRN (16:33)
[2020-01-02] MEDS: METRONIDAZOLE PMX 500MG/100ML 100 ML IV SCH (16:33)
[2020-01-02] MEDS: NS + 20MEQ KCL 1,000 ML IV SCH (16:34)
--- NOTE | 2020-01-02 17:08 | NUR ---
coid swab sent updated on estmated poc
--- NOTE | 2020-01-02 17:15 | NUR ---
room air sat of 76-79% confirmed with multiple pulse oxs and clarification of waveform
--- NOTE | 2020-01-02 18:30 | NUR ---
lab at bedside for repeat lactate
--- NOTE | 2020-01-02 18:43 | NUR ---
hospital bed ordered for patient
[2020-01-02 20:23] VITALS: BP 125/89
[2020-01-02] MEDS: TRAZODONE 50MG TABLET PO PRN (21:33)
[2020-01-02] MEDS: HEPARIN 5,000 UNITS/ML, 1ML SQ SCH (21:34)
[2020-01-02] MEDS: SODIUM CHLORIDE FLUSH 10ML SYR IVF SCH (22:00)
[2020-01-03 00:01] VITALS: BP 115/66
[2020-01-03] MEDS: METRONIDAZOLE PMX 500MG/100ML 100 ML IV SCH ×3 (00:16→16:46)
[2020-01-03] MEDS: NS + 20MEQ KCL 1,000 ML IV SCH ×2 (02:29→12:19)
[2020-01-03 04:03] VITALS: BP 125/71
[2020-01-03] MEDS: HEPARIN 5,000 UNITS/ML, 1ML SQ SCH ×3 (05:28→22:33)
[2020-01-03 06:31] LABS: BASOPHILS % (AUTO) 0 % (0-1); EOSINOPHILS % (AUTO) 1 % (1-7); LYMPHOCYTES % (AUTO) 15 % (22-44); MEAN CORPUSCULAR HEMOGLOBIN 28.6 pg (27.0-34.8); MEAN CORPUSCULAR HGB CONC 33.2 g/dL (32.4-35.8); MEAN PLATELET VOLUME 8.3 fL (7.4-10.4); MONOCYTES % (AUTO) 8 % (2-9); NEUTROPHILS % (AUTO) 76 % (42-75); PLATELET COUNT 263 x10^3/uL (130-400); RED BLOOD COUNT 4.79 x10^6/uL (3.82-5.3); RED CELL DISTRIBUTION WIDTH 13.2 % (9.6-15.2)
[2020-01-03 06:40] LABS: ALANINE AMINOTRANSFERASE 20 U/L (12-78); ALBUMIN 2.1 g/dL (3.4-5.0); ANION GAP 6 mmol/L (5-15); CALCIUM 8.2 mg/dL (8.5-10.1); CHLORIDE 111 mmol/L (98-107)
[2020-01-03 06:41] LABS: MD NO
[2020-01-03 06:52] LABS: ALKALINE PHOSPHATASE 89 U/L (45-117); BILIRUBIN,TOTAL 0.5 mg/dL (0.2-1.0); CREATININE 1.37 mg/dL (0.55-1.02); TOTAL PROTEIN 6.1 g/dL (6.4-8.2)
[2020-01-03 07:41] VITALS: BP 142/82
[2020-01-03] MEDS: FLUOXETINE HCL 20 MG CAPSULE PO SCH (10:46)
[2020-01-03] MEDS: INSULIN LISPRO 100 UNITS/ML, PEN SQ-INSULIN SCH ×4 (10:46→20:10)
[2020-01-03] MEDS: SODIUM CHLORIDE FLUSH 10ML SYR IVF SCH ×2 (10:47→21:00)
[2020-01-03 12:34] VITALS: BP 115/71
[2020-01-03] MEDS: CEFTRIAXONE PMX 1GM/50ML 50 ML IV SCH (15:54)
[2020-01-03 16:25] VITALS: BP 138/89
[2020-01-03] MEDS: AZITHROMYCIN 500 MG in SODIUM CHLORIDE 0.9% 250 ML IV SCH (17:51)
[2020-01-03 18:40] VITALS: BP 121/76
[2020-01-03] MEDS: TRAZODONE 50MG TABLET PO PRN (22:32)
[2020-01-04] MEDS: METRONIDAZOLE PMX 500MG/100ML 100 ML IV SCH ×3 (00:14→15:21)
[2020-01-04 02:14] VITALS: BP 134/62
[2020-01-04] MEDS: NS + 20MEQ KCL 1,000 ML IV SCH ×2 (05:12→12:00)
[2020-01-04] MEDS: HEPARIN 5,000 UNITS/ML, 1ML SQ SCH ×3 (05:13→22:30)
[2020-01-04 05:35] LABS: BASOPHILS % (AUTO) 0 % (0-1); EOSINOPHILS % (AUTO) 1 % (1-7); LYMPHOCYTES % (AUTO) 17 % (22-44); MEAN CORPUSCULAR HEMOGLOBIN 28.4 pg (27.0-34.8); MEAN CORPUSCULAR HGB CONC 32.4 g/dL (32.4-35.8); MEAN PLATELET VOLUME 8.4 fL (7.4-10.4); MONOCYTES % (AUTO) 8 % (2-9); NEUTROPHILS % (AUTO) 75 % (42-75); PLATELET COUNT 241 x10^3/uL (130-400); RED BLOOD COUNT 4.68 x10^6/uL (3.82-5.3); RED CELL DISTRIBUTION WIDTH 13.1 % (9.6-15.2)
[2020-01-04 05:38] LABS: MD NO
[2020-01-04 05:44] LABS: ANION GAP 5 mmol/L (5-15); CALCIUM 7.9 mg/dL (8.5-10.1); CHLORIDE 111 mmol/L (98-107); CREATININE 1.02 mg/dL (0.55-1.02)
[2020-01-04 06:05] VITALS: BP 152/92
[2020-01-04] MEDS: SODIUM CHLORIDE FLUSH 10ML SYR IVF SCH ×2 (09:00→22:30)
[2020-01-04] MEDS: INSULIN LISPRO 100 UNITS/ML, PEN SQ-INSULIN SCH ×4 (09:04→22:29)
[2020-01-04 10:13] VITALS: BP 128/73
[2020-01-04] MEDS: FLUOXETINE HCL 20 MG CAPSULE PO SCH (11:24)
[2020-01-04] MEDS: POTASSIUM CHLORIDE 20 MEQ TAB.ER.PRT PO SCH ×2 (11:52→17:52)
[2020-01-04 15:00] VITALS: BP 146/85
[2020-01-04] MEDS: CEFTRIAXONE PMX 1GM/50ML 50 ML IV SCH (17:12)
[2020-01-04] MEDS: AZITHROMYCIN 500 MG in SODIUM CHLORIDE 0.9% 250 ML IV SCH (17:44)
[2020-01-04] MEDS ORDERED: FLUCONAZOLE 50 MG TABLET PO ONE (19:00)
[2020-01-04] MEDS ORDERED: FLUCONAZOLE 200 MG TABLET ONE (19:05)
[2020-01-04 19:25] VITALS: BP 156/90
[2020-01-04] MEDS ORDERED: FLUCONAZOLE 200 MG TABLET PO ONE (19:30)
[2020-01-04] MEDS: TRAZODONE 50MG TABLET PO PRN (22:29)
[2020-01-04] MEDS: LACTOBACILLUS CHEW TABLET PO SCH (22:29)
[2020-01-05 00:18] VITALS: BP 121/68
[2020-01-05] MEDS: METRONIDAZOLE PMX 500MG/100ML 100 ML IV SCH ×3 (00:18→16:37)
[2020-01-05] MEDS: INSULIN GLARGINE 100 UNITS/ML, PEN SQ-INSULIN SCH ×3 (00:18→21:38)
[2020-01-05 05:48] LABS: ANION GAP 4 mmol/L (5-15); CALCIUM 7.8 mg/dL (8.5-10.1); CHLORIDE 114 mmol/L (98-107); CREATININE 0.76 mg/dL (0.55-1.02)
[2020-01-05] MEDS: HEPARIN 5,000 UNITS/ML, 1ML SQ SCH ×3 (05:58→22:19)
[2020-01-05] MEDS: LACTOBACILLUS CHEW TABLET PO SCH ×2 (05:58→11:44)
[2020-01-05 06:00] LABS: BASOPHILS % (AUTO) 0 % (0-1); EOSINOPHILS % (AUTO) 2 % (1-7); LYMPHOCYTES % (AUTO) 16 % (22-44); MEAN CORPUSCULAR HEMOGLOBIN 28.4 pg (27.0-34.8); MEAN CORPUSCULAR HGB CONC 32.6 g/dL (32.4-35.8); MONOCYTES % (AUTO) 8 % (2-9); NEUTROPHILS % (AUTO) 74 % (42-75); PLATELET COUNT 217 x10^3/uL (130-400); RED BLOOD COUNT 4.49 x10^6/uL (3.82-5.3); RED CELL DISTRIBUTION WIDTH 13.3 % (9.6-15.2)
[2020-01-05 06:15] LABS: MD NO
[2020-01-05 07:43] VITALS: BP 171/84
[2020-01-05] MEDS: INSULIN LISPRO 100 UNITS/ML, PEN SQ-INSULIN SCH ×4 (08:40→21:37)
[2020-01-05] MEDS: SODIUM CHLORIDE FLUSH 10ML SYR IVF SCH ×2 (08:40→21:00)
[2020-01-05] MEDS: FLUOXETINE HCL 20 MG CAPSULE PO SCH (08:41)
[2020-01-05 11:44] VITALS: BP 127/76
[2020-01-05 12:00] LABS: CLOSTRIDIUM DIFFICILE ANTIGEN NEGATIVE; CLOSTRIDIUM DIFFICILE TOXIN NEGATIVE (Negative)
[2020-01-05 12:54] VITALS: BP 121/78
[2020-01-05] MEDS ORDERED: DIPHENOXYLATE/ATROPINE TABLET PO PRN (17:30)
[2020-01-05] MEDS: CEFTRIAXONE PMX 1GM/50ML 50 ML IV SCH (18:22)
[2020-01-05] MEDS: POTASSIUM CHLORIDE 20 MEQ TAB.ER.PRT PO SCH ×2 (18:22→18:28)
[2020-01-05 19:43] VITALS: BP 127/75
[2020-01-06] MEDS: METRONIDAZOLE PMX 500MG/100ML 100 ML IV SCH ×3 (00:23→16:30)
[2020-01-06 00:41] VITALS: BP 139/79
[2020-01-06] MEDS: HEPARIN 5,000 UNITS/ML, 1ML SQ SCH ×3 (06:00→22:15)
[2020-01-06] MEDS: PROMETHAZINE 25 MG/ML, 1ML IM PRN ×2 (07:59→16:33)
[2020-01-06] MEDS: INSULIN GLARGINE 100 UNITS/ML, PEN SQ-INSULIN SCH ×2 (08:40→20:24)
[2020-01-06] MEDS: INSULIN LISPRO 100 UNITS/ML, PEN SQ-INSULIN SCH ×4 (08:40→20:24)
[2020-01-06] MEDS: FLUOXETINE HCL 20 MG CAPSULE PO SCH (08:41)
[2020-01-06] MEDS: SODIUM CHLORIDE FLUSH 10ML SYR IVF SCH ×2 (08:42→20:25)
[2020-01-06] MEDS: POTASSIUM CHLORIDE 20 MEQ TAB.ER.PRT PO SCH ×2 (08:42→16:33)
[2020-01-06 09:41] VITALS: BP 113/71
[2020-01-06] MEDS: ACETAMINOPHEN 325 MG TABLET PO PRN (11:45)
[2020-01-06] MEDS: CHOLESTYRAMINE LIGHT 4GM PACKET PO SCH ×2 (11:46→20:24)
[2020-01-06 13:51] VITALS: BP_SYST 104; BP_SYST 105; BP_DIAS 66; BP_DIAS 71
[2020-01-06 13:53] VITALS: BP 85/61
[2020-01-06] MEDS: CEFTRIAXONE PMX 1GM/50ML 50 ML IV SCH (17:13)
[2020-01-06 20:25] VITALS: BP 132/77
[2020-01-07] MEDS: METRONIDAZOLE PMX 500MG/100ML 100 ML IV SCH ×3 (00:01→16:14)
[2020-01-07 00:04] VITALS: BP 158/92
[2020-01-07] MEDS: HEPARIN 5,000 UNITS/ML, 1ML SQ SCH ×3 (06:15→22:00)
[2020-01-07 06:59] VITALS: BP 161/85
[2020-01-07] MEDS: INSULIN GLARGINE 100 UNITS/ML, PEN SQ-INSULIN SCH ×2 (08:29→22:14)
[2020-01-07] MEDS: INSULIN LISPRO 100 UNITS/ML, PEN SQ-INSULIN SCH ×4 (08:29→22:14)
[2020-01-07] MEDS: POTASSIUM CHLORIDE 20 MEQ TAB.ER.PRT PO SCH ×2 (08:32→17:00)
[2020-01-07] MEDS: FLUOXETINE HCL 20 MG CAPSULE PO SCH (08:32)
[2020-01-07 08:38] VITALS: BP 151/92
[2020-01-07] MEDS: SODIUM CHLORIDE FLUSH 10ML SYR IVF SCH ×2 (09:00→22:14)
[2020-01-07] MEDS: CHOLESTYRAMINE LIGHT 4GM PACKET PO SCH ×2 (09:00→20:43)
[2020-01-07 09:22] LABS: ANION GAP 6 mmol/L (5-15); CALCIUM 8.1 mg/dL (8.5-10.1); CHLORIDE 107 mmol/L (98-107); CREATININE 0.75 mg/dL (0.55-1.02)
[2020-01-07 14:17] VITALS: BP 113/75
[2020-01-07] MEDS: ONDANSETRON 2MG/ML, 2ML IVPush PRN (17:30)
[2020-01-07] MEDS: CEFTRIAXONE PMX 1GM/50ML 50 ML IV SCH (17:31)
[2020-01-07] MEDS: ACETAMINOPHEN 325 MG TABLET PO PRN (17:31)
[2020-01-07 20:50] VITALS: BP 131/80
[2020-01-07] MEDS: TRAZODONE 50MG TABLET PO PRN (22:17)
[2020-01-08] MEDS: METRONIDAZOLE PMX 500MG/100ML 100 ML IV SCH ×2 (00:30→10:37)
[2020-01-08 02:13] VITALS: BP 115/75
[2020-01-08] MEDS: HEPARIN 5,000 UNITS/ML, 1ML SQ SCH ×3 (05:21→22:10)
[2020-01-08] MEDS: INSULIN LISPRO 100 UNITS/ML, PEN SQ-INSULIN SCH ×4 (07:00→20:12)
[2020-01-08] MEDS: POTASSIUM CHLORIDE 20 MEQ TAB.ER.PRT PO SCH ×2 (08:00→10:57)
[2020-01-08] MEDS: SODIUM CHLORIDE FLUSH 10ML SYR IVF SCH ×2 (09:00→20:02)
[2020-01-08 10:39] VITALS: BP 128/72
[2020-01-08] MEDS: FLUOXETINE HCL 20 MG CAPSULE PO SCH (10:57)
[2020-01-08] MEDS: CHOLESTYRAMINE LIGHT 4GM PACKET PO SCH ×2 (10:57→20:05)
[2020-01-08] MEDS: INSULIN GLARGINE 100 UNITS/ML, PEN SQ-INSULIN SCH ×2 (10:58→20:13)
[2020-01-08] MEDS ORDERED: MAGNESIUM SULFATE PMX 4GM/100M 100 ML IVPB ONE (12:00)
[2020-01-08 14:28] VITALS: BP 124/74
[2020-01-08] MEDS: SPIRONOLACTONE 25 MG TABLET PO SCH (16:16)
[2020-01-08 18:47] VITALS: BP 126/75
[2020-01-08] MEDS: DOXYCYCLINE 100MG TABLET PO SCH (20:02)
[2020-01-09 00:29] VITALS: BP 126/75
[2020-01-09] MEDS: HEPARIN 5,000 UNITS/ML, 1ML SQ SCH ×2 (05:29→14:00)
[2020-01-09 05:51] LABS: BASOPHILS % (AUTO) 1 % (0-1); EOSINOPHILS % (AUTO) 2 % (1-7); LYMPHOCYTES % (AUTO) 23 % (22-44); MEAN CORPUSCULAR HEMOGLOBIN 28.7 pg (27.0-34.8); MEAN CORPUSCULAR HGB CONC 32.5 g/dL (32.4-35.8); MEAN PLATELET VOLUME 8.2 fL (7.4-10.4); MONOCYTES % (AUTO) 10 % (2-9); NEUTROPHILS % (AUTO) 64 % (42-75); PLATELET COUNT 184 x10^3/uL (130-400); RED BLOOD COUNT 4.15 x10^6/uL (3.82-5.3); RED CELL DISTRIBUTION WIDTH 13.7 % (9.6-15.2)
[2020-01-09 05:59] LABS: CHLORIDE 109 mmol/L (98-107)
[2020-01-09 06:01] LABS: MD NO
[2020-01-09 06:06] LABS: ALANINE AMINOTRANSFERASE 14 U/L (12-78); ALBUMIN 1.8 g/dL (3.4-5.0); ALKALINE PHOSPHATASE 131 U/L (45-117); ANION GAP 3 mmol/L (5-15); BILIRUBIN,TOTAL 0.5 mg/dL (0.2-1.0); CALCIUM 8.3 mg/dL (8.5-10.1); CREATININE 0.69 mg/dL (0.55-1.02); TOTAL PROTEIN 5.6 g/dL (6.4-8.2)
[2020-01-09] MEDS: INSULIN GLARGINE 100 UNITS/ML, PEN SQ-INSULIN SCH (08:11)
[2020-01-09] MEDS: INSULIN LISPRO 100 UNITS/ML, PEN SQ-INSULIN SCH ×2 (08:12→12:43)
[2020-01-09 08:14] VITALS: BP 152/82
[2020-01-09] MEDS: FLUOXETINE HCL 20 MG CAPSULE PO SCH (08:51)
[2020-01-09] MEDS: SPIRONOLACTONE 25 MG TABLET PO SCH (08:52)
[2020-01-09] MEDS: DOXYCYCLINE 100MG TABLET PO SCH (08:52)
[2020-01-09] MEDS: SODIUM CHLORIDE FLUSH 10ML SYR IVF SCH (08:55)
[2020-01-09] MEDS: CHOLESTYRAMINE LIGHT 4GM PACKET PO SCH ×2 (09:00→12:35)
[2020-01-09] MEDS ORDERED: LOPE-114 PO (12:05)
[2020-01-09 13:14] VITALS: BP 139/81
== END 2020-01-09 14:48 | disposition home or self-care (01) | DRG 720 ==
LOC: ED 12:28 → SUATTDRO 14:10 → EDIP 15:32 → 3N 16:36 → 4WST 17:41 → EDIP 18:04 → 3N 19:58
PROVIDERS: ADMIT Internal Medicine; ATTEND Hospitalist
PROC: 0T9B70Z Drainage of Bladder with Drainage Device, Via Natural or Artificial Opening (ICD-10-PCS; principal; 2020-01-02)
DX: A41.9 Sepsis, unspecified organism (principal); E11.65 Type 2 diabetes mellitus with hyperglycemia; E46 Unspecified protein-calorie malnutrition; E87.1 Hypo-osmolality and hyponatremia; E83.42 Hypomagnesemia; E87.2 Acidosis; E87.6 Hypokalemia; F31.9 Bipolar disorder, unspecified; G89.29 Other chronic pain; I10 Essential (primary) hypertension; J69.0 Pneumonitis due to inhalation of food and vomit; N17.0 Acute kidney failure with tubular necrosis; N39.0 Urinary tract infection, site not specified; R09.02 Hypoxemia; M25.559 Pain in unspecified hip; M54.9 Dorsalgia, unspecified; Z20.828 Contact with and (suspected) exposure to other viral communicable diseases; R00.0 Tachycardia, unspecified; Z68.31 Body mass index [BMI] 31.0-31.9, adult; Z79.4 Long term (current) use of insulin; Z91.14 Patient's other noncompliance with medication regimen
CPT/HCPCS: 36415; 71045; 72170; 72192; 80048; 80053; 81001; 82010; 82550; 82803; 82947; 82962; 83605; 83735; 83930; 84100; 84145; 84443; 85025; 87040; 87086; 87106; 87324; 87635; 96361; 96365; 96375; 99285; G0378; J0456; J0696; J1644; J1815; J2405; J2550; J3480; J3475; J7030; J7050

== ENCOUNTER 2020-06-24 00:37 | Emergency (ER) | payer MEDICAID ==
[~2020-06-24] VITALS: Ht 177.8 cm; Wt 102.0 kg
[~2020-06-24 00:37] MED LIST changes: -HYDR-3245 PO; +HYDR1TAB53 PO; +LOPE-114 PO; -OXYC5TAB3 PO; +OXYC5TAB98 PO
--- NOTE | 2020-06-24 01:13 | NUR ---
PT HAS C/O RIGHT SHOULDER PAIN FOR THE LAST YEAR FROM "SURGERY" AND RIGHT ELBOW PAIN FROM A FALL. PT HAS SWELLING TO R ELBOW
[2020-06-24] MEDS ORDERED: MORPHINE SULFATE 4 MG/ML, 1ML ONE (01:23)
[2020-06-24] MEDS ORDERED: ONDANSETRON 2MG/ML, 2ML ONE (01:23)
[2020-06-24] MEDS ORDERED: ONDANSETRON 2MG/ML, 2ML IVPush ONE (01:30)
[2020-06-24] MEDS ORDERED: MORPHINE SULFATE 4 MG/ML, 1ML IVPush PRN (01:30)
[2020-06-24 01:54] VITALS: BP 175/92
== END 2020-06-24 03:44 ==
LOC: ED 03:31
DX: S42.291A Other displaced fracture of upper end of right humerus, initial encounter for closed fracture (principal); S52.121A Displaced fracture of head of right radius, initial encounter for closed fracture; F17.210 Nicotine dependence, cigarettes, uncomplicated; W01.0XXA Fall on same level from slipping, tripping and stumbling without subsequent striking against object, initial encounter; Y93.89 Activity, other specified; Y92.410 Unspecified street and highway as the place of occurrence of the external cause; Y99.8 Other external cause status
CPT/HCPCS: 29105; 99406

== ENCOUNTER → 2020-07-20 | Outpatient (CLI) | payer MEDICAID | END | disposition home or self-care (01) | LOC: CFH 10:28 | PROVIDERS: ATTEND Physician Assistant Surgical | DX: S52.124A Nondisplaced fracture of head of right radius, initial encounter for closed fracture (principal); S42.294A Other nondisplaced fracture of upper end of right humerus, initial encounter for closed fracture; M25.521 Pain in right elbow; X58.XXXA Exposure to other specified factors, initial encounter; Y92.89 Other specified places as the place of occurrence of the external cause; Y93.89 Activity, other specified; Y99.8 Other external cause status ==